=== PATIENT | female | born 1940 | race Caucasian/White ===

== ENCOUNTER 2018-11-24 08:56 | Inpatient (IN) | payer OTHER, MEDICAID ==
[~2018-11-24] VITALS: Ht 152.4 cm; Wt 66.2 kg
[~2018-11-24 08:56] MED LIST: ALBU17AE26 IH; ALPHAGANP OP; ASPI-1154 PO; ATEN-41 PO; BRIN10DR OP; FURO-149 PO; GLIP10TA11 PO; LUMEYE OP; METF-381 PO; SIMV40TA5 PO; SPIR25TA PO
[2018-11-24 09:13] VITALS: BP_SYST 162
[2018-11-24] MEDS ORDERED: ONDANSETRON HCL 4 MG/2 ML VIAL IVP ONE (09:30)
[2018-11-24] MEDS ORDERED: METF1000 PO (09:53)
[2018-11-24] MEDS ORDERED: TRAZ-219 PO (09:53)
[2018-11-24] MEDS ORDERED: LEVO25TA7 PO (09:53)
[2018-11-24] MEDS ORDERED: LOSA50TA3 PO (09:53)
[2018-11-24] MEDS ORDERED: HYDR12.585 PO (09:53)
[2018-11-24] MEDS ORDERED: ISOS30TA6 PO (09:53)
[2018-11-24] MEDS ORDERED: BENZ-16 PO (09:53)
[2018-11-24] MEDS ORDERED: METO25TA3 PO (09:53)
[2018-11-24] MEDS ORDERED: METO-290 PO (09:53)
[2018-11-24 10:17] LABS: HEMATOCRIT 47.4 % (36-48); HEMOGLOBIN 15.6 g/dL (12.0-16.0); MEAN CORPUSCULAR VOLUME 92 fL (79.0-98.0); RED BLOOD CELL COUNT(AUTO) 5.15 MIL/uL (4.2-6.2); WHITE BLOOD COUNT (AUTO) 8.3 K/uL (4.8-10.8)
[2018-11-24 10:18] LABS: BASOPHILS % (AUTO) 0.2 % (0.0-2.0); EOSINOPHILS % (AUTO) 0.1 % (0.0-4.0); LYMPHOCYTES # (AUTO) 1.1 K/uL (1.0-5.5); LYMPHOCYTES % (AUTO) 12.8 % (20.5-51.5); MEAN CORPUSCULAR HEMOGLOBIN 30 pg (27-31); MEAN CORPUSCULAR HGB CONC 33 % (32-36); MONOCYTES # (AUTO) 0.5 K/uL (0.0-1.0); MONOCYTES % (AUTO) 6.1 % (1.7-9.3); NEUTROPHILS # (AUTO) 6.7 K/uL (1.8-7.7); NEUTROPHILS % (AUTO) 80.8 % (40.0-70.0); PLATELET COUNT (AUTO) 321 K/uL (130-430); RED CELL DISTRIBUTION WIDTH 14.8 % (9.0-15.0)
[2018-11-24 10:22] LABS: ANION GAP 13 (5-15); CALCIUM 10.3 mg/dL (8.4-11.0); CHLORIDE 104 mmol/L (98-107); CREATININE 3.11 mg/dL (0.55-1.30); GLUCOSE 258 mg/dL (70-99); POTASSIUM 3.4 mmol/L (3.5-5.1); SODIUM SERUM 143 mmol/L (136-145); UREA NITROGEN, BLOOD 96 mg/dL (8-21)
[2018-11-24 10:28] LABS: ALANINE AMINOTRANSFERASE 19 U/L (12-78); ALBUMIN 4.7 g/dL (3.4-4.8); ASPARTATE AMINOTRANSFERASE 19 U/L (10-37); LIPASE 391 U/L (73-393); TOTAL BILIRUBIN 0.5 mg/dL (0.0-1.0)
[2018-11-24] MEDS ORDERED: KCL 20 mEq in 0.45% NS 1000 mL 1,000 ML IV SCH (11:45)
[2018-11-24 11:53] VITALS: BP_SYST 147
[2018-11-24 12:58] LABS: BILIRUBIN,URINE NEGATIVE (NEGATIVE); CLARITY/URINE HAZY (CLEAR); COLOR,URINE YELLOW (YELLOW); GLUCOSE,URINE 3+ (NEGATIVE); KETONES,URINE NEGATIVE (NEGATIVE); LEUKOCYTE ESTERASE ,URINE NEGATIVE (NEGATIVE); NITRITE, URINE NEGATIVE (NEGATIVE); PROTEIN URINE 1+ (NEGATIVE); UROBILINOGEN,URINE 0.2 (0.2-1.0)
[2018-11-24 13:06] LABS: BLOOD, URINE TRACE (NEGATIVE)
[2018-11-24 13:18] LABS: BACTERIA,URINE MODERATE /HPF (None Seen); URINE AMORPHOUS URATE 2+ /HPF (None Seen)
== END 2018-11-24 11:54 | disposition left against medical advice (07) | DRG 74 ==
LOC: SED 08:56 → SMU 11:33
PROVIDERS: ADMIT Family Medicine; ATTEND Family Medicine
DX: E11.43 Type 2 diabetes mellitus with diabetic autonomic (poly)neuropathy (principal); K31.84 Gastroparesis; J45.909 Unspecified asthma, uncomplicated; I10 Essential (primary) hypertension; F03.90 Unspecified dementia, unspecified severity, without behavioral disturbance, psychotic disturbance, mood disturbance, and anxiety; Z88.0 Allergy status to penicillin; Z88.2 Allergy status to sulfonamides; Z88.8 Allergy status to other drugs, medicaments and biological substances; Z79.899 Other long term (current) drug therapy
CPT/HCPCS: 36415; 80053; 81000-TC; 83690-TC; 85025; 87086; 87186-TC; 96374; 99285; J2405; J3480

== ENCOUNTER 2018-12-03 09:49 | Inpatient (IN) | payer OTHER, MEDICAID ==
[~2018-12-03] VITALS: Ht 152.4 cm; Wt 64.0 kg
[~2018-12-03 09:49] MED LIST changes: -ALBU17AE26 IH; -ALPHAGANP OP; -ASPI-1154 PO; -ATEN-41 PO; +BENZ-16 PO; -BRIN10DR OP; -GLIP10TA11 PO; +HYDR12.585 PO; +ISOS30TA6 PO; +LEVO25TA7 PO; +LOSA50TA3 PO; -LUMEYE OP; -METF-381 PO; +METF1000 PO; +METO-290 PO; +METO25TA3 PO; -SPIR25TA PO; +TRAZ-219 PO
[2018-12-03 11:34] VITALS: BP_SYST 134
[2018-12-03 11:53] VITALS: BP_SYST 134
[2018-12-03] MEDS ORDERED: SERT50TA12 PO (12:22)
[2018-12-03] MEDS ORDERED: AMIT25TA9 PO (12:22)
[2018-12-03] MEDS ORDERED: ASPI-1153 PO (12:34)
[2018-12-03] MEDS ORDERED: NITSL SL (12:34)
[2018-12-03] MEDS ORDERED: INSU100V11 SQ (12:34)
[2018-12-03] MEDS ORDERED: CAT.1 PO (12:34)
[2018-12-03 12:52] LABS: BASOPHILS % (AUTO) 0.2 % (0.0-2.0); EOSINOPHILS # (AUTO) 0.1 K/uL (0.0-0.4); EOSINOPHILS % (AUTO) 1.1 % (0.0-4.0); HEMATOCRIT 36.9 % (36-48); HEMOGLOBIN 12.1 g/dL (12.0-16.0); LYMPHOCYTES # (AUTO) 1.4 K/uL (1.0-5.5); LYMPHOCYTES % (AUTO) 19.7 % (20.5-51.5); MEAN CORPUSCULAR HEMOGLOBIN 30 pg (27-31); MEAN CORPUSCULAR HGB CONC 33 % (32-36); MEAN CORPUSCULAR VOLUME 92 fL (79.0-98.0); MONOCYTES # (AUTO) 0.7 K/uL (0.0-1.0); MONOCYTES % (AUTO) 9.6 % (1.7-9.3); NEUTROPHILS # (AUTO) 4.9 K/uL (1.8-7.7); NEUTROPHILS % (AUTO) 69.4 % (40.0-70.0); PLATELET COUNT (AUTO) 167 K/uL (130-430); RED BLOOD CELL COUNT(AUTO) 4.02 MIL/uL (4.2-6.2); RED CELL DISTRIBUTION WIDTH 14.8 % (9.0-15.0); WHITE BLOOD COUNT (AUTO) 7.1 K/uL (4.8-10.8)
[2018-12-03 13:12] LABS: ALANINE AMINOTRANSFERASE 23 U/L (12-78); ALBUMIN 3.2 g/dL (3.4-4.8); ANION GAP 4 (5-15); ASPARTATE AMINOTRANSFERASE 20 U/L (10-37); CHLORIDE 98 mmol/L (98-107); GLUCOSE 241 mg/dL (70-99); POTASSIUM 4.2 mmol/L (3.5-5.1); SODIUM SERUM 133 mmol/L (136-145); TOTAL BILIRUBIN 0.4 mg/dL (0.0-1.0)
[2018-12-03 13:23] LABS: CREATININE 0.95 mg/dL (0.55-1.30); UREA NITROGEN, BLOOD 21 mg/dL (8-21)
[2018-12-03] MEDS: KCL 20 mEq in 0.45% NS 1000 mL 1,000 ML IV SCH (13:48)
[2018-12-03] MEDS ORDERED: BENZONATATE 100 MG CAPSULE (TESSALON) PO PRN (15:15)
[2018-12-03] MEDS ORDERED: METOCLOPRAMIDE HCL 10 MG TABLET PO PRN (15:15)
[2018-12-03] MEDS ORDERED: NITROGLYCERIN 0.4 MG TAB.SUBL SL PRN (15:15)
[2018-12-03] MEDS: metFORMIN HCL 500 MG TABLET PO SCH (17:14)
[2018-12-03 17:15] VITALS: BP_SYST 151
[2018-12-03] MEDS: INSULIN REGULAR, HUMAN 100 UNITS/ML, 10 ML VIAL (novoLIN R) SUBCUT PRN ×2 (17:19→21:56)
[2018-12-03 20:00] VITALS: BP_SYST 151
[2018-12-03] MEDS: GENTAMICIN SULFATE 0.3% OPHT. 5 ML DROPS OP SCH (21:19)
[2018-12-03] MEDS: cloNIDine HCL 0.1 MG TABLET PO SCH (21:20)
[2018-12-03] MEDS: traZODone HCL 50 MG TABLET (DESYREL) PO SCH (21:20)
[2018-12-03] MEDS: LOSARTAN POTASSIUM 50 MG TABLET (COZAAR) PO SCH (21:21)
[2018-12-03] MEDS: ENOXAPARIN SODIUM 40 MG/0.4 ML SYRINGE SUBCUT SCH (21:25)
[2018-12-04 00:47] VITALS: BP_SYST 118
[2018-12-04] MEDS: LEVOTHYROXINE SODIUM 0.025 MG TABLET PO SCH (06:02)
[2018-12-04] MEDS: KCL 20 mEq in 0.45% NS 1000 mL 1,000 ML IV SCH ×2 (06:03→22:20)
[2018-12-04] MEDS: cloNIDine HCL 0.1 MG TABLET PO SCH ×3 (06:03→20:42)
[2018-12-04] MEDS: INSULIN REGULAR, HUMAN 100 UNITS/ML, 10 ML VIAL (novoLIN R) SUBCUT PRN ×4 (06:05→20:49)
[2018-12-04 08:00] VITALS: BP_SYST 100
[2018-12-04] MEDS: metFORMIN HCL 500 MG TABLET PO SCH ×3 (08:00→18:00)
[2018-12-04] MEDS: ONDANSETRON HCL 4 MG/2 ML VIAL IVP PRN (08:36)
[2018-12-04] MEDS: LOSARTAN POTASSIUM 50 MG TABLET (COZAAR) PO SCH ×2 (09:00→20:41)
[2018-12-04] MEDS ORDERED: FUROSEMIDE 40 MG TABLET PO SCH (09:00)
[2018-12-04] MEDS: METOPROLOL SUCCINATE 25 MG TAB.SR.24H (TOPROL XL) PO SCH (09:00)
[2018-12-04] MEDS: HYDROCHLOROTHIAZIDE 12.5 MG CAPSULE (HCTZ) PO SCH (09:00)
[2018-12-04] MEDS ORDERED: BARIUM SULFATE 135 ML SUSP.RECON (E-Z-HD) PO ONE ×2 (09:10→12:17)
[2018-12-04 10:00] VITALS: BP_SYST 114
[2018-12-04] MEDS: GENTAMICIN SULFATE 0.3% OPHT. 5 ML DROPS OP SCH ×4 (12:52→22:20)
[2018-12-04] MEDS: SERTRALINE HCL 50 MG TABLET PO SCH (13:18)
[2018-12-04] MEDS: SIMVASTATIN 40 MG TABLET PO SCH (13:18)
[2018-12-04] MEDS: ISOSORBIDE MONONITRATE 30 MG TAB.ER.24H PO SCH (13:18)
[2018-12-04] MEDS: ASPIRIN 81 MG TABLET(ECOTRIN) PO SCH (13:18)
[2018-12-04 17:54] VITALS: BP_SYST 120
[2018-12-04 19:00] VITALS: BP_SYST 118
[2018-12-04 20:00] VITALS: BP_SYST 118
[2018-12-04] MEDS: traZODone HCL 50 MG TABLET (DESYREL) PO SCH (20:41)
[2018-12-04] MEDS: ENOXAPARIN SODIUM 40 MG/0.4 ML SYRINGE SUBCUT SCH (20:47)
[2018-12-05 01:38] VITALS: BP_SYST 129
[2018-12-05] MEDS: cloNIDine HCL 0.1 MG TABLET PO SCH ×3 (05:38→21:58)
[2018-12-05] MEDS: INSULIN REGULAR, HUMAN 100 UNITS/ML, 10 ML VIAL (novoLIN R) SUBCUT PRN ×4 (05:39→21:58)
[2018-12-05] MEDS: LEVOTHYROXINE SODIUM 0.025 MG TABLET PO SCH (05:39)
[2018-12-05] MEDS ORDERED: SIMETHICONE 40 MG/0.6 ML ML ONE (06:30)
[2018-12-05] MEDS ORDERED: MIDAZOLAM HCL 5 MG/5 ML VIAL ONE (06:31)
[2018-12-05] MEDS ORDERED: MEPERIDINE HCL/PF 100 MG/ML AMP ONE (06:31)
[2018-12-05 06:34] LABS: PROTHROMBIN TIME 10.3 SECS (9.5-12.5)
[2018-12-05] MEDS: metFORMIN HCL 500 MG TABLET PO SCH ×2 (08:00→17:17)
[2018-12-05] MEDS: ASPIRIN 81 MG TABLET(ECOTRIN) PO SCH (08:47)
[2018-12-05] MEDS: LOSARTAN POTASSIUM 50 MG TABLET (COZAAR) PO SCH ×2 (08:47→21:00)
[2018-12-05] MEDS: SIMVASTATIN 40 MG TABLET PO SCH (08:48)
[2018-12-05] MEDS: SERTRALINE HCL 50 MG TABLET PO SCH (08:48)
[2018-12-05] MEDS: HYDROCHLOROTHIAZIDE 12.5 MG CAPSULE (HCTZ) PO SCH (08:48)
[2018-12-05] MEDS: ISOSORBIDE MONONITRATE 30 MG TAB.ER.24H PO SCH (08:48)
[2018-12-05] MEDS: METOPROLOL SUCCINATE 25 MG TAB.SR.24H (TOPROL XL) PO SCH (08:48)
[2018-12-05] MEDS: GENTAMICIN SULFATE 0.3% OPHT. 5 ML DROPS OP SCH ×3 (08:49→21:53)
[2018-12-05 08:54] VITALS: BP_SYST 99
[2018-12-05 11:16] VITALS: BP_SYST 123
[2018-12-05 13:13] VITALS: BP_SYST 113
[2018-12-05] MEDS: KCL 20 mEq in 0.45% NS 1000 mL 1,000 ML IV SCH (14:20)
[2018-12-05 16:01] VITALS: BP_SYST 121
[2018-12-05 20:00] VITALS: BP_SYST 104
[2018-12-05] MEDS: ENOXAPARIN SODIUM 40 MG/0.4 ML SYRINGE SUBCUT SCH (21:00)
[2018-12-05] MEDS: traZODone HCL 50 MG TABLET (DESYREL) PO SCH (21:53)
[2018-12-06 00:17] VITALS: BP_SYST 121
[2018-12-06] MEDS: LEVOTHYROXINE SODIUM 0.025 MG TABLET PO SCH (06:11)
[2018-12-06] MEDS: cloNIDine HCL 0.1 MG TABLET PO SCH ×2 (06:11→14:00)
[2018-12-06 06:50] LABS: BASOPHILS % (AUTO) 0.2 % (0.0-2.0); EOSINOPHILS # (AUTO) 0.1 K/uL (0.0-0.4); EOSINOPHILS % (AUTO) 2.1 % (0.0-4.0); HEMATOCRIT 34.6 % (36-48); HEMOGLOBIN 11.4 g/dL (12.0-16.0); LYMPHOCYTES # (AUTO) 1.6 K/uL (1.0-5.5); LYMPHOCYTES % (AUTO) 25.7 % (20.5-51.5); MEAN CORPUSCULAR HEMOGLOBIN 30 pg (27-31); MEAN CORPUSCULAR HGB CONC 33 % (32-36); MEAN CORPUSCULAR VOLUME 93 fL (79.0-98.0); MONOCYTES # (AUTO) 0.5 K/uL (0.0-1.0); MONOCYTES % (AUTO) 8.5 % (1.7-9.3); NEUTROPHILS # (AUTO) 3.9 K/uL (1.8-7.7); NEUTROPHILS % (AUTO) 63.5 % (40.0-70.0); PLATELET COUNT (AUTO) 173 K/uL (130-430); RED BLOOD CELL COUNT(AUTO) 3.74 MIL/uL (4.2-6.2); RED CELL DISTRIBUTION WIDTH 14.8 % (9.0-15.0); WHITE BLOOD COUNT (AUTO) 6.1 K/uL (4.8-10.8)
[2018-12-06 06:56] LABS: ALANINE AMINOTRANSFERASE 20 U/L (12-78); ALBUMIN 2.8 g/dL (3.4-4.8); ANION GAP 4 (5-15); ASPARTATE AMINOTRANSFERASE 15 U/L (10-37); CALCIUM 8.9 mg/dL (8.4-11.0); CHLORIDE 101 mmol/L (98-107); CREATININE 0.96 mg/dL (0.55-1.30); GLUCOSE 160 mg/dL (70-99); POTASSIUM 4.2 mmol/L (3.5-5.1); SODIUM SERUM 133 mmol/L (136-145); TOTAL BILIRUBIN 0.5 mg/dL (0.0-1.0); UREA NITROGEN, BLOOD 16 mg/dL (8-21)
[2018-12-06 07:22] VITALS: BP_SYST 130
[2018-12-06] MEDS: metFORMIN HCL 500 MG TABLET PO SCH (08:00)
[2018-12-06] MEDS: SIMVASTATIN 40 MG TABLET PO SCH (08:10)
[2018-12-06] MEDS: SERTRALINE HCL 50 MG TABLET PO SCH (08:11)
[2018-12-06] MEDS: ASPIRIN 81 MG TABLET(ECOTRIN) PO SCH (08:11)
[2018-12-06] MEDS: METOPROLOL SUCCINATE 25 MG TAB.SR.24H (TOPROL XL) PO SCH (08:11)
[2018-12-06] MEDS: HYDROCHLOROTHIAZIDE 12.5 MG CAPSULE (HCTZ) PO SCH ×2 (08:11→09:06)
[2018-12-06] MEDS: GENTAMICIN SULFATE 0.3% OPHT. 5 ML DROPS OP SCH ×2 (08:12→14:31)
[2018-12-06] MEDS: ISOSORBIDE MONONITRATE 30 MG TAB.ER.24H PO SCH (08:12)
[2018-12-06] MEDS: LOSARTAN POTASSIUM 50 MG TABLET (COZAAR) PO SCH (08:12)
[2018-12-06] MEDS: KCL 20 mEq in 0.45% NS 1000 mL 1,000 ML IV SCH (08:13)
[2018-12-06] MEDS: ONDANSETRON HCL 4 MG/2 ML VIAL IVP PRN (08:15)
[2018-12-06] MEDS ORDERED: ERYTHROMYCIN BASE 500 MG TABLET PO ONE (10:30)
[2018-12-06 12:21] VITALS: BP_SYST 134
[2018-12-06] MEDS ORDERED: BISACODYL 10 MG/SUPPOSITORY RC ONE (14:30)
[2018-12-06 15:56] VITALS: BP_SYST 130
[2018-12-06 16:24] VITALS: BP_SYST 141
[2018-12-06] MEDS ORDERED: ONDA4TAB5 SL (16:31)
[2018-12-06] MEDS ORDERED: ERYTHROMYCIN BASE 500 MG TABLET PO SCH (17:00)
== END 2018-12-06 17:20 | disposition home or self-care (01) | DRG 74 ==
LOC: SMU 10:30
PROVIDERS: ADMIT Family Medicine; ATTEND Family Medicine
PROC: 0DB68ZX Excision of Stomach, Via Natural or Artificial Opening Endoscopic, Diagnostic (ICD-10-PCS; principal; 2018-12-05 09:00)
PROC: 0DB68ZZ Excision of Stomach, Via Natural or Artificial Opening Endoscopic (ICD-10-PCS; 2018-12-05 09:00)
DX: E11.43 Type 2 diabetes mellitus with diabetic autonomic (poly)neuropathy (principal); K29.70 Gastritis, unspecified, without bleeding; K31.84 Gastroparesis; I25.10 Atherosclerotic heart disease of native coronary artery without angina pectoris; I10 Essential (primary) hypertension; R13.10 Dysphagia, unspecified; E78.5 Hyperlipidemia, unspecified; K31.7 Polyp of stomach and duodenum; Z95.1 Presence of aortocoronary bypass graft; Z88.2 Allergy status to sulfonamides; Z88.0 Allergy status to penicillin; Z88.8 Allergy status to other drugs, medicaments and biological substances
CPT/HCPCS: 36415; 43239; 43251; 74245-TC; 78264-TC; 80053; 82962; 85025; 85610-TC; 87081; 88305; 88312; 88313; A9541; J1650; J1815; J2175; J2250; J2405; J3480; J7030; J8597

== ENCOUNTER 2018-12-09 17:37 | Emergency (ER) | payer OTHER, MEDICAID ==
[~2018-12-09] VITALS: Ht 152.4 cm; Wt 102.1 kg
[~2018-12-09 17:37] MED LIST changes: +AMIT25TA9 PO; +ASPI-1153 PO; +CAT.1 PO; +INSU100V11 SQ; +NITSL SL; +ONDA4TAB5 SL; +SERT50TA12 PO
[2018-12-09 17:40] VITALS: BP_SYST 156
[2018-12-09 18:13] LABS: BASOPHILS % (AUTO) 0.2 % (0.0-2.0); EOSINOPHILS # (AUTO) 0.1 K/uL (0.0-0.4); EOSINOPHILS % (AUTO) 1.1 % (0.0-4.0); HEMATOCRIT 36.2 % (36-48); HEMOGLOBIN 11.9 g/dL (12.0-16.0); LYMPHOCYTES # (AUTO) 1.4 K/uL (1.0-5.5); LYMPHOCYTES % (AUTO) 20.6 % (20.5-51.5); MEAN CORPUSCULAR HEMOGLOBIN 30 pg (27-31); MEAN CORPUSCULAR HGB CONC 33 % (32-36); MEAN CORPUSCULAR VOLUME 92 fL (79.0-98.0); MONOCYTES # (AUTO) 0.5 K/uL (0.0-1.0); NEUTROPHILS # (AUTO) 4.6 K/uL (1.8-7.7); NEUTROPHILS % (AUTO) 70.1 % (40.0-70.0); PLATELET COUNT (AUTO) 215 K/uL (130-430); RED BLOOD CELL COUNT(AUTO) 3.94 MIL/uL (4.2-6.2); RED CELL DISTRIBUTION WIDTH 14.6 % (9.0-15.0); WHITE BLOOD COUNT (AUTO) 6.6 K/uL (4.8-10.8)
[2018-12-09 18:24] LABS: ANION GAP 1 (5-15); CALCIUM 9.1 mg/dL (8.4-11.0); CHLORIDE 100 mmol/L (98-107); CREATININE 1.04 mg/dL (0.55-1.30); GLUCOSE 189 mg/dL (70-99); POTASSIUM 4.3 mmol/L (3.5-5.1); SODIUM SERUM 131 mmol/L (136-145); UREA NITROGEN, BLOOD 17 mg/dL (8-21)
[2018-12-09 18:29] LABS: ALANINE AMINOTRANSFERASE 22 U/L (12-78); ALBUMIN 3.1 g/dL (3.4-4.8); ASPARTATE AMINOTRANSFERASE 15 U/L (10-37); LIPASE 66 U/L (73-393); TOTAL BILIRUBIN 0.5 mg/dL (0.0-1.0)
[2018-12-09 19:19] VITALS: BP_SYST 156
== END 2018-12-09 18:50 | disposition home or self-care (01) ==
LOC: SED 17:37
DX: K59.00 Constipation, unspecified (principal); J45.909 Unspecified asthma, uncomplicated; E11.9 Type 2 diabetes mellitus without complications; I10 Essential (primary) hypertension; F03.90 Unspecified dementia, unspecified severity, without behavioral disturbance, psychotic disturbance, mood disturbance, and anxiety; Z90.89 Acquired absence of other organs; Z88.0 Allergy status to penicillin; Z88.2 Allergy status to sulfonamides; Z79.82 Long term (current) use of aspirin; Z79.899 Other long term (current) drug therapy
CPT/HCPCS: 36415; 74018; 80053; 83690-TC; 85025; 99284